=== PATIENT | male | born 1980 | race Caucasian/White ===

== ENCOUNTER 2018-03-21 09:10 | Emergency (ER) | payer OTHER ==
--- NOTE | 2018-03-21 09:25 | EDPHY ---
H & P Stated Complaint: Bilateral back pain Time Seen by Provider: 03/21/18 09:19 HPI/ROS: HPI: This is a 37-year-old male who presents with Chief Complaint: Bilateral back and flank pain Location: Bilateral back and flank Quality: Pain Duration: Since yesterday afternoon around 3:00 p.m. 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 He reports that he has a history of L5-S1 degenerative changes followed by a chiropractor and a disc bulge in the same area that" Acts up approximately twice a year." He has never had an MRI performed. Reports that he practices good stretching and body mechanics and sees a chiropractor for adjustments several times per year with good results. He believes that yesterday afternoon he may have strained his lower back again. He reports that this pain feels different than when he further herniated his disc at L5-S1. Usually that causes midline pain with radiation. He is complaining of bilateral mid thoracic and upper lumbar paraspinous discomfort that radiates up into the mid back. He denies any change in bowel or bladder habits, incontinence. Patient is ambulatory without any deficits. He drove himself to the emergency room today. He went to the [facility] yesterday afternoon around 5:00 p.m. and was given "2 shots" that improved his symptoms. He then was given a prescription for Valium and tramadol that have been helping his symptoms. Last doses around 7:30 p.m. Last night. He woke up around 7:00 a.m. This morning with increased pain. Is asking for referral to spine for an outpatient MRI. Modifying Factors: See above Comment: ROS: A comprehensive 10 system review of systems is otherwise negative aside from elements mentioned in the history of present illness. 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 Denies alcohol, drug use. CONSTITUTIONAL: Tall stature, nontoxic appearing, minimal distress, adult white male awake and alert HEENT: Atraumatic and normocephalic. NECK: supple Cardiovascular: Normal S1/S2, regular rate, regular rhythm, without murmur rub or gallop. PULMONARY/CHEST: Symmetrical and nontender. Clear to auscultation bilaterally. Good air movement. No accessory muscle usage. ABDOMEN: Soft, nondistended, nontender. BACK: No midline tenderness, moderate lower thoracic and upper lumbar reproducible tenderness bilaterally and paraspinous spasm, deep tendon reflexes 2/2, mild pain with bilateral straight leg raise, No foot drop. Achilles reflexes are equal bilaterally. Able to walk on heels and toes without difficulty. Mildly decreased flexion, extension, bilateral rotation. EXTREMITIES: 2/2 pulses, strength 5/5, no deformities, no clubbing, no cyanosis or edema. NEUROLOGICAL: no focal neuro deficits. GCS 15. Light touch sensation intact. SKIN: Warm and dry, no erythema. no rash. Good capillary refill. Source: Patient Exam Limitations: No limitations - Medical/Surgical History Hx Asthma: No Hx Chronic Respiratory Disease: No Hx Diabetes: No Hx Cardiac Disease: No Hx Renal Disease: No Hx Cirrhosis: No Hx Alcoholism: No Hx HIV/AIDS: No Hx Splenectomy or Spleen Trauma: No Other PMH: Low Back pain, ADHD - Social History Smoking Status: Light smoker Constitutional: Initial Vital Signs Temperature (C) 36.7 C 03/21/18 09:13 Heart Rate 60 03/21/18 09:13 Respiratory Rate 18 03/21/18 09:13 Blood Pressure 133/82 H 03/21/18 09:13 O2 Sat (%) 94 03/21/18 09:13 O2 Delivery Mode Room Air Allergies/Adverse Reactions: Penicillins Allergy (Verified 03/21/18 09:12) Home Medications: Medication Instructions Recorded Adderall 10 MG (*) 03/21/18 DIAZEPAM 03/21/18 methylPREDNISolone [Medrol Dose 1 each PO AD #1 packet 03/21/18 Srini] traMADol 03/21/18 Medical Decision Making - Diagnostics Imaging Results: Imaging Impressions Lumbar Spine X-Ray 03/21/18 09:26 Impression: No acute findings in the lumbar spine. Thoracic Spine X-Ray 03/21/18 09:26 Impression: 1. Minimal vertebral spondylosis in the mid thoracic spine. 2. Minimal anterior height reduction at T7, possibly congenital or less likely posttraumatic (age indeterminant) ED Course/Re-evaluation: Vital signs reviewed and stable upon arrival. No neurological deficits to warrant emergent MRI in the emergency room. Thoracic and Lumbar Sacral xrays ordered and my read via PAC shows mild narrowing at the L5-S1; moderate constipation; x-rays reviewed at bedside with patient and x-rays provided to patient on disc Given IM Decadron 10 mg and IM Toradol 60 mg with adequate pain relief Patient given a referral to Neurosurgery for further evaluation and a prescription for Medrol Dosepak Ambulatory at discharge with no deficits. No signs of neurovascular compromise/tenting of skin/compartment syndrome/ extremities and joints examined above and below area of concern and are neurovascularly intact/cauda equina syndrome/diskitis/epidural hematoma This patient was seen under the supervision of my secondary supervising physician. I evaluated care for this patient independently. Discussed this patient with Dr. Thomas who did not see the patient. Differential Diagnosis: Back pain including but not limited to muscular pain, herniated disc, spine fracture, intra-abdominal causes and urinary tract infection. - Data Points Medications Given: Discontinued Medications Dexamethasone (Decadron Injection) 10 mg IM EDNOW ONE Stop: 03/21/18 09:27 Last Admin: 03/21/18 09:33 Dose: 10 mg Ketorolac Tromethamine (Toradol) 60 mg IM EDNOW ONE Stop: 03/21/18 09:27 Last Admin: 03/21/18 09:33 Dose: 60 mg Departure - Departure Disposition: Home, Routine, Self-Care Clinical Impression: Strain of muscle and tendon of back wall of thorax, initial encounter, History of herniated intervertebral disc Strain of lumbar paraspinal muscle Qualifiers: Encounter type: initial encounter Qualified Code(s): S39.012A - Strain of muscle, fascia and tendon of lower back, initial encounter Condition: Good Instructions: Lumbar Disc Herniation (ED), Low Back Strain (ED) Additional Instructions: Take Tylenol 650 mg every 4 hours and/or Ibuprofen 600 mg every 8 hours with food as needed for pain. Use Tramadol every 6 hours as needed for severe/break through pain. Use Valium every 6 hours as needed for muscle spasms. Take Medrol Dosepak as directed. Follow up with PCP in 5-7 days if symptoms persist at which time they will evaluate and recommend with you if conservative management versus MRI is indicated. Follow-up with neurosurgery to discuss further intervention options like epidural steroid injection. Return to the ER immediately if you have new or worsening back pain, fevers/ chills, flu like symptoms, incontinence or inability to urinate or defecate, weakness, paralysis, or any other symptom that concerns you Referrals: Nasir Dorsey MD [Primary Care Provider] - As per Instructions Carroll Ness MD [Medical Doctor] - As per Instructions Prescriptions: methylPREDNISolone [Medrol Dose Srini] 1 each PO AD #1 packet
[2018-03-21] MEDS ORDERED: KETOROLAC 30 MG/1 ML SDV IM ONE (09:26)
[2018-03-21] MEDS ORDERED: DEXAMETHASONE 10 MG/ML VIAL IM ONE (09:26)
[2018-03-21 10:36] VITALS: BP 129/99
== END 2018-03-21 10:37 | disposition home or self-care (01) ==
DX: S39.012A Strain of muscle, fascia and tendon of lower back, initial encounter (principal); M51.24 Other intervertebral disc displacement, thoracic region; X50.9XXA Other and unspecified overexertion or strenuous movements or postures, initial encounter; Y92.9 Unspecified place or not applicable; Y93.9 Activity, unspecified
CPT/HCPCS: J1100; J1885